=== PATIENT | female | born 1975 | race Caucasian/White ===

== ENCOUNTER 2018-06-01 11:05 | Emergency (ER) | payer SELFPAY ==
[2018-06-01 11:18] VITALS: BP 147/80
[2018-06-01] MEDS ORDERED: KETOROLAC TROMETHAMINE 60 MG/2 ML SDV IM ONE (11:25)
--- NOTE | 2018-06-01 11:30 | ER Document Report ---
HPI - HPI Time Seen by Provider: 06/01/18 11:19 Pain Level: 4 Notes: Patient is a 43-year-old female with a history of fibromyalgia and on gabapentin who presents the emergency department complaining of left mid back and left lateral neck pain/stiffness that began over the last couple days. Patient states that she has had symptoms like this before. Patient states that moving and twisting do make her pain is worse. Pain will radiate to her shoulder. Patient states that she recently moved to the area and otherwise does not have insurance at this time. She is eating and drinking without difficulty. She is urinating normally and having normal bowel movements. No history of spinal abscess, diabetes, or IV drug abuse. Patient does report having some bulging disks in her mid back/neck. Patient is currently on antibiotics for dental infection which has been improving. Denies any headache, fever, head injury, URI, sore throat, chest pain, palpitations, syncope, cough, shortness of breath, wheeze, dyspnea, abdominal pain, nausea/vomiting/diarrhea, urinary retention, dysuria, hematuria, loss of control of bowel or bladder, numbness/tingling, saddle anesthesia, muscle paralysis/weakness, or rash. - ROS Systems Reviewed and Negative: Yes All other systems reviewed and negative - REPRODUCTIVE Reproductive: DENIES: : Past Medical History - Social History Smoking Status: Current Every Day Smoker Family History: Reviewed & Not Pertinent Patient has suicidal ideation: No Patient has homicidal ideation: No Renal/ Medical History: Denies: Hx Peritoneal Dialysis Psychiatric Medical History: Reports: Hx Depression Past Surgical History: Reports: Hx Appendectomy, Hx Orthopedic Surgery, Hx Tonsillectomy Vertical Provider Document - CONSTITUTIONAL Agree With Documented VS: Yes Notes: PHYSICAL EXAMINATION: GENERAL: Well-appearing, well-nourished and in no acute distress. Neck: Full range of motion. Strength 5+/5. Spurling negative. No midline tenderness. LUNGS: Breath sounds clear to auscultation bilaterally and equal. No wheezes rales or rhonchi. HEART: Regular rate and rhythm without murmurs, rubs, gallops. ABDOMEN: Soft, nontender, nondistended abdomen. No guarding, no rebound. No masses appreciated. Normal bowel sounds present. No CVA tenderness bilaterally. No pulsatile mass Musculoskeletal: Extremities b/l: FROM to passive/active. Strength 5+/5. No deficits noted. No bony tenderness of extremities. N/V intact distal. Back: FROM to passive/active. Strength 5+/5. No vertebral point tenderness, stepoffs, or deformities. No other bony tenderness, erythema, swelling, or ecchymosis. SLR negative b/l. + Reproducible tenderness to the left trapezius muscle distribution from the left lateral neck to the mid back and scapular area. Mild spasming. No SI jt tenderness. No foot drop Extremities: No cyanosis, clubbing, or edema b/l. Peripheral pulses 2+. Capillary refill less than 2 seconds. NEUROLOGICAL: Normal speech, normal gait. Normal sensory, motor exams. Reflexes 2+ b/l. PSYCH: Normal mood, normal affect. SKIN: Warm, Dry, normal turgor, no rashes or lesions noted. - INFECTION CONTROL TRAVEL OUTSIDE OF THE [place] IN LAST 30 DAYS: No Course - Re-evaluation Re-evalutation: 06/01/18 11:28 Patient is an afebrile, well-hydrated, 43-year-old male who presents to the ED with left trapezius muscle spasming and left mid neck/mid back pain, suspect benign. Vitals are acceptable. PE is otherwise unremarkable for any focal neurological deficits. Patient was given Toradol. She has no significant tachycardia, tachypnea, or hypoxia. She is nontoxic-appearing and is tolerating p.o. without difficulties. There are no signs of infection. No other red flag symptoms noted. No other labs or imaging warranted at this time based on H&P. Low suspicion for any meningitis, fracture, expanding/ruptured AAA, cauda equina syndrome, epidural mass lesion/abscess, herniated disc causing severe spinal stenosis, or other systemic infection at this time. Patient is aware that this condition can change from initial presentation and that she needs monitor symptoms closely for any acute changes. I will send her home with a prescription for flexeril and naproxen. Conservative measures otherwise for symptoms. Recheck with your PCM in 3-5 days. Consider consult with orthopedic/physical therapy. Return to the ED with any worsening/concerning symptoms otherwise as reviewed discharge. Patient is in agreement. - Vital Signs Vital signs: Temp Pulse Resp BP Pulse Ox 98.0 F 93 16 147/80 H 95 06/01/18 11:17 06/01/18 11:17 06/01/18 11:17 06/01/18 11:17 06/01/18 11:17 Discharge - Discharge Clinical Impression: Neck pain on left side Left-sided thoracic back pain Qualifiers: Chronicity: acute Qualified Code(s): M54.6 - Pain in thoracic spine Strain of left trapezius muscle Qualifiers: Encounter type: initial encounter Qualified Code(s): S46.812A - Strain of other muscles, fascia and tendons at shoulder and upper arm level, left arm, initial encounter Condition: Stable Disposition: HOME, SELF-CARE Instructions: Muscle Relaxers ([facility]) Additional Instructions: Rest, Ice Tylenol/ibuprofen as needed Light stretches daily Strength exercises as able Moist heat and massage may help F/u with your PCP in 3-5 days for a recheck Consider consult(s) with Orthopedics/physical therapy for ongoing/worsening symptoms Return to the ED with any worsening symptoms and/or development of fever, headache, chest pain, palpitations, syncope, shortness of breath, trouble breathing, abdominal pain, n/v/d, blood in stool/urine, loss of control of bowel/bladder, urinary retention, muscle weakness/paralysis, saddle anesthesia, numbness/tingling, or other worsening symptoms that are concerning to you. Prescriptions: Cyclobenzaprine HCl [Flexeril 10 mg Tablet] 10 mg PO TIDP PRN #10 tab PRN Reason: Naproxen 500 mg PO BID #10 tablet Forms: Elevated Blood Pressure, Smoking Cessation Education Referrals: [facility] [Provider Group] - Follow up as needed [facility] [Provider Group] - Follow up as needed
--- NOTE | 2018-06-01 11:41 | EKG REPORT ---
SEVERITY:- NORMAL ECG - SINUS RHYTHM : Confirmed by: Jose Hilton MD 01-Jun-2018 11:40:42
== END 2018-06-01 11:39 | disposition home or self-care (01) ==
LOC: ER 11:05
DX: S29.012A Strain of muscle and tendon of back wall of thorax, initial encounter (principal); X58.XXXA Exposure to other specified factors, initial encounter; M79.7 Fibromyalgia; Z79.899 Other long term (current) drug therapy; M62.830 Muscle spasm of back; M54.6 Pain in thoracic spine; M54.2 Cervicalgia; K04.7 Periapical abscess without sinus; F17.200 Nicotine dependence, unspecified, uncomplicated
CPT/HCPCS: 93005; 99283; 96372; 93010; J1885

== ENCOUNTER → 2018-11-22 | Outpatient (CLI) | payer OTHER ==
--- NOTE | 2018-11-22 11:24 | RADIOLOGY REPORT (SQ) ---
EXAM DESCRIPTION: CT ABD/PELVIS WITH IV ORAL COMPLETED DATE/TIME: 11/22/2018 9:23 am REASON FOR STUDY: (R00.2)PALPITATIONS; (R10.9)UNSPECIFIED ABDOMINAL PAIN R10.9 UNSPECIFIED ABDOMINA L PAIN R00.2 PALPITATIONS COMPARISON: None. TECHNIQUE: CT scan of the abdomen and pelvis performed using helical scanning technique with dynamic intravenous contrast injection. No oral contrast. Images reviewed with lung, soft tissue, and bone windows. Reconstructed coronal and sagittal MPR images reviewed. Delayed images for evaluation of the urinary system also acquired. All images stored on PACS. All CT scanners at this facility use dose modulation, iterative reconstruction, and/or weight based d osing when appropriate to reduce radiation dose to as low as reasonably achievable (ALARA). [facility]: Dose Right [facility]: CareDose [facility]: Dose Right [facility]: Teradose 4D [facility]: Little Borrowed Dress CONTRAST TYPE AND DOSE: contrast/concentration: Isovue 350.00 mg/ml; Total Contrast Delivered: 100.0 ml; Total Saline Delivered: 72.0 ml RENAL FUNCTION: None required. The patient is less than 50 years old. RADIATION DOSE: CT Rad equipment meets quality standard of care and radiation dose reduction techniq ues were employed. CTDIvol: 15.5 - 16.4 mGy. DLP: 1756 mGy-cm.. LIMITATIONS: None. FINDINGS: LOWER CHEST: No basilar consolidation, pleural effusion or pneumothorax. No cardiomegaly or pericardial effusion. LIVER: The liver morphology is non cirrhotic. The portal and hepatic veins are patent. There is no hepatic mass or dilatation of the intrahepatic biliary ducts. SPLEEN: The spleen is normal in size. PANCREAS: There is no abnormality of the pancreas. GALLBLADDER: No abnormality that is apparent on CT. ADRENAL GLANDS: No abnormality. RIGHT KIDNEY AND URETER: No solid masses. No calcifications. No hydronephrosis or hydroureter. LEFT KIDNEY AND URETER: No solid masses. No calcifications. No hydronephrosis or hydroureter. AORTA AND VESSELS: No aneurysm or dissection. RETROPERITONEUM: No enlarged retroperitoneal adenopathy or mass. BOWEL AND PERITONEAL CAVITY: Circumferential moral thickening involving the descending and sigmoid co rajat. There is no associated obstruction, pericolonic/ perienteric inflammation, or extraluminal azalea ection. There is no enlarged mesenteric adenopathy, mass, or free fluid/gas. APPENDIX: Normal. PELVIS: There is an IUD in place. There is no adnexal mass. Th urinary bladder is decompressed. Th ere is no pelvic adenopathy, free fluid or mass. ABDOMINAL WALL: Fat containing umbilical hernia. BONES: No acute findings. OTHER: No other finding. IMPRESSION: Circumferential mural thickening involving the descending and sigmoid colon. Correlate with clinical findings to exclude an infectious or inflammatory colitis. TECHNICAL DOCUMENTATION: JOB ID: [id number] Quality ID # [id number]: Final reports with documentation of one or more dose reduction techniques (e.g., Au tomated exposure control, adjustment of the mA and/or kV according to patient size, use of iterative reconstruction technique) 2010 [employer]- All Rights Reserved Reading location - IP/workstation name: [email or web address]
== END ==
LOC: RAD 09:01
PROVIDERS: ATTEND Nurse Practitioner Primary Care
DX: K42.9 Umbilical hernia without obstruction or gangrene (principal); R00.2 Palpitations
CPT/HCPCS: 74177

== ENCOUNTER 2018-12-21 16:44 | Emergency (ER) | payer MEDICAID, OTHER ==
[2018-12-21] MEDS ORDERED: PENICILLIN V POTASSIUM 500 MG TABLET PO ONE (19:34)
[2018-12-21] MEDS ORDERED: ALBUTEROL SULFATE HFA (90 MCG/PUFF) 8 GM MDI (1 MDI/ER DISP) IH ONE (19:34)
--- NOTE | 2018-12-21 19:41 | ER Document Report ---
HPI - HPI Patient complains to provider of: tooth pain Time Seen by Provider: 12/21/18 18:52 Pain Level: 2 Context: 43-year-old female presents the emergency department with multiple complaints. Her initial complaint is post extraction tooth pain of the #19 tooth. It was removed 2 weeks ago at [facility] and she is concerned that she has an infection. She says she has a foul taste in her mouth and has significant pain from her maxillary bone down to her jaw. He denies any fevers or chills, denies dysphagia, denies trismus, says that there is some very mild swelling of the mouth. Also, she is complained of a cough for the past week. Says she has had some chest tightness and wheezing associated with it. Also, she is complaining of abdominal pain that has been present since September. She was seen at the [facility] and a CT abdomen/pelvis was done which showed some mural wall thickening of the sigmoid colon. The recommendation was that she go on a liquid diet to see if her symptoms improved. She said they did transiently improved but she still has some lingering pain. It was recommended that she follow-up with GI but she does not have insurance. She denies any fevers or chills, denies headache, denies neck stiffness, denies chest pain, denies nausea or vomiting, does complain of loose stools, denies any urinary symptoms. - GASTROINTESTINAL Gastrointestinal: REPORTS: Abdominal Pain - REPRODUCTIVE Reproductive: DENIES: : Past Medical History - Social History Smoking Status: Current Every Day Smoker Frequency of alcohol use: Social Drug Abuse: Marijuana Family History: Reviewed & Not Pertinent Patient has suicidal ideation: No Patient has homicidal ideation: No Renal/ Medical History: Denies: Hx Peritoneal Dialysis Psychiatric Medical History: Reports: Hx Depression Past Surgical History: Reports: Hx Appendectomy, Hx Orthopedic Surgery, Hx Tonsillectomy Vertical Provider Document - CONSTITUTIONAL Notes: PHYSICAL EXAMINATION: Reviewed vital signs and charting by RN GENERAL: Alert, interacts well. No acute distress. HEAD: Normocephalic, atraumatic. EYES: Pupils equal and round. Extraocular movements intact. ENT: Oral mucosa moist, tongue midline. NECK: Full range of motion. Trachea midline. LUNGS: Clear to auscultation bilaterally, end expiratory wheezes, no Rales or rhonchi. No respiratory distress. HEART: Regular rate and rhythm. No murmur ABDOMEN: soft, mild tenderness in the left lower quadrant. No distention. Bowel sounds present EXTREMITIES: Moves all 4 extremities spontaneously. No edema, No cyanosis. PSYCH: Normal affect, normal mood. SKIN: Warm, dry, normal turgor. No rashes or lesions noted. - INFECTION CONTROL TRAVEL OUTSIDE OF THE [place] IN LAST 30 DAYS: No Course - Re-evaluation Re-evalutation: 12/21/18 19:45 Patient presents with several chief complaints. There did appear to be a small amount of purulent discharge from the #19 socket so I obtained a sample and will send for culture. I will place her on penicillin VK 500 mg p.o. for 1 week. No fevers or chills. No trismus. No need for advanced imaging at this point. Also, patient presents with subacute abdominal pain for which she had a CT abdomen outpatient. The results showed mural wall thickening of the sigmoid colon and the [facility] recommended that she get GI follow-up for which she never did. At this time patient is not toxic appearing and her abdomen is soft and I recommended that she get GI follow-up and I provided her with Dr. Dean's information. I do not feel we need to perform any additional imaging or get additional lab work at this time. She also has some end expiratory wheezing on physical exam and I am going to give her an albuterol inhaler with spacer with education. She did request ibuprofen 800 mg prescription after I explained to her that it would be more cost effective for her to purchase a bottle at [facility] as the efficacy is the same. I also explained to her that I recommend 600 mg every 6 hours versus 800 mg every 8 hours but the patient stated she has been on pain medications for years due to her "fibromyalgia" and said "the 800 mg Motrin works best for me". I conceded but educated her that she should only take 800 mg every 8 hours. Patient was given strict return precautions and education, patient agrees with the plan and is satisfied, stable for discharge. - Vital Signs Vital signs: Temp Pulse Resp BP Pulse Ox 97.6 F 92 18 129/72 H 95 12/21/18 16:56 12/21/18 16:56 12/21/18 16:56 12/21/18 16:56 12/21/18 16:56 Discharge - Discharge Clinical Impression: Dental infection, Cough, Wheezing Abdominal pain Qualifiers: Abdominal location: left lower quadrant Qualified Code(s): R10.32 - Left lower quadrant pain Condition: Good Disposition: HOME, SELF-CARE Additional Instructions: You were seen in the emergency department for dental pain postextraction, cough and wheezing, and lower abdominal pain. There was evidence of some mild purulent discharge coming from the tooth socket from the extraction. You have received a dose of penicillin here in the emergency department I have given you a one-week prescription and you should take 1 tablet in the morning and 1 tablet in the evening. Also, I have given you a prescription for ibuprofen 800 mg that he should take every 8 hours per your request. You did have some end expiratory wheezing so I am giving you a spacer with an inhaler. If you feel like you are short of breath or your chest is tight you can take 2 puffs of the inhaler as needed every 4 hours or so. I have given you information for GI, Dr. Daly, and can attempt to follow-up with him with respect to your CT scan from late October. Your vital signs were within normal limits and there is no evidence of infectious symptoms that would concern me for an acute process here in the emergency department today requiring admission to the hospital. But, it is important that you do get definitive follow-up with gastroenterology. Please return to the emergency department if you pass out, you have severe acute shortness of breath, severe chest pain, intractable nausea or vomiting, profuse diarrhea, or you have any other concerning symptoms. Prescriptions: Ibuprofen [Motrin 800 mg Tablet] 800 mg PO Q8H PRN #60 tab PRN Reason: Penicillin V Potassium [Penicillin Vk 500 mg Tablet] 500 mg PO BID 7 Days #14 tablet Referrals: LINN DALY MD [ACTIVE STAFF] - Follow up as needed
[2018-12-21 20:04] VITALS: BP 135/96
== END 2018-12-21 20:02 | disposition home or self-care (01) ==
LOC: ER 16:44
DX: K04.7 Periapical abscess without sinus (principal); R05 Cough; R10.32 Left lower quadrant pain; R06.2 Wheezing; R07.89 Other chest pain; F17.200 Nicotine dependence, unspecified, uncomplicated; F12.10 Cannabis abuse, uncomplicated; M79.7 Fibromyalgia; Z79.899 Other long term (current) drug therapy; Z90.49 Acquired absence of other specified parts of digestive tract
CPT/HCPCS: 99282; J3490

== ENCOUNTER 2019-05-15 15:55 | Inpatient (IN) | payer BC, OTHER ==
[2019-05-15] MEDS ORDERED: NORMAL SALINE IV ONE (16:12)
[2019-05-15 16:39] LABS: VENOUS BLOOD BASE EXCESS 1.7 mmol/L; VENOUS BLOOD HCO3 23.7 mmol/L (20-32); VENOUS BLOOD PCO2 30.7 mmHg (35-63); VENOUS BLOOD PH 7.51 (7.30-7.42)
[2019-05-15 16:42] LABS: HEMATOCRIT 36.8 % (36.0-47.0); INTERNATIONAL RATION (INR) 1.13; MEAN CORPUSCULAR HEMOGLOBIN 30.7 pg (27.0-33.4); MEAN CORPUSCULAR HGB CONC 35.4 g/dL (32.0-36.0); MEAN CORPUSCULAR VOLUME 87 fl (80-97); PLATELET COUNT 152 10^3/uL (150-450); PROTHROMBIN TIME 14.5 SEC (11.4-15.4); RED BLOOD COUNT 4.24 10^6/uL (3.72-5.28); RED CELL DISTRIBUTION WIDTH 13.5 % (11.5-14.0); WHITE BLOOD COUNT 7.6 10^3/uL (4.0-10.5)
--- NOTE | 2019-05-15 16:48 | RADIOLOGY REPORT (SQ) ---
EXAM DESCRIPTION: CHEST SINGLE VIEW COMPLETED DATE/TIME: 05/15/2019 4:38 pm REASON FOR STUDY: Sepsis alert cough COMPARISON: None. EXAM PARAMETERS: NUMBER OF VIEWS: One view. TECHNIQUE: Single frontal radiographic view of the chest acquired. RADIATION DOSE: NA LIMITATIONS: None. FINDINGS: LUNGS AND PLEURA: No opacities, masses or pneumothorax. No pleural effusion. MEDIASTINUM AND HILAR STRUCTURES: No masses. Contour normal. HEART AND VASCULAR STRUCTURES: Heart normal in size. Normal vasculature. BONES: No acute findings. HARDWARE: None in the chest. OTHER: No other significant finding. IMPRESSION: NO ACUTE RADIOGRAPHIC FINDING IN THE CHEST. TECHNICAL DOCUMENTATION: JOB ID: [id number] 2010 [employer]- All Rights Reserved Reading location - IP/workstation name: [email or web address]
[2019-05-15 16:56] LABS: ALBUMIN 3.3 g/dL (3.5-5.0); ALKALINE PHOSPHATASE 117 U/L (38-126); ANION GAP 10 (5-19); ASPARTATE AMINO TRANSFERASE 76 U/L (14-36); BILIRUBIN,DIRECT 0.4 mg/dL (0.0-0.4); BILIRUBIN,TOTAL 1.9 mg/dL (0.2-1.3); BLOOD UREA NITROGEN 20 mg/dL (7-20); CALCIUM 8.7 mg/dL (8.4-10.2); CARBON DIOXIDE 26 mmol/L (22-30); CHLORIDE 100 mmol/L (98-107); GLUCOSE 104 mg/dL (75-110); POTASSIUM 3.1 mmol/L (3.6-5.0); TOTAL PROTEIN 6.4 g/dL (6.3-8.2)
[2019-05-15 17:16] LABS: ABSOLUTE LYMPHOCYTES# (MANUAL) 0.6 10^3/uL (0.5-4.7); BASOPHILS % (MANUAL) 0 % (0-2); EOSINOPHILS % (MANUAL) 0 % (0-6); LYMPHOCYTES % (MANUAL) 6 % (13-45); METAMYELOCYTES % (MANUAL) 2 % (0-1); MONOCYTES % (MANUAL) 0 % (3-13); SEGMENTED NEUTROPHILS % (MAN) 66 % (42-78); TOTAL CELLS COUNTED 100
[2019-05-15 17:23] LABS: PLATELET COMMENT ADEQUATE; PLATELET LARGE PRESENT; POLYCHROMASIA SLIGHT
[2019-05-15 17:24] LABS: BAND NEUTROPHILS % (MANUAL) 24 % (3-5); TOXIC VACUOLATION PRESENT
[2019-05-15 17:41] LABS: AMORPHOUS SEDIMENT,URINE TRACE /HPF; APPEARANCE,URINE CLOUDY; BILIRUBIN,URINE NEGATIVE (NEGATIVE); COLOR,URINE AMBER; GLUCOSE, URINE NEGATIVE (NEGATIVE); KETONES,URINE NEGATIVE (NEGATIVE); PROTEIN,URINE 30 mg/dL (NEGATIVE); URINE SPECIFIC GRAVITY 1.013
[2019-05-15] MEDS ORDERED: CEFTRIAXONE 1 GM/D5W RTU 1 GM/50 ML RTUPB IV ONE (17:46)
[2019-05-15 17:49] LABS: A TYPE INFLUENZA AG NEGATIVE (NEGATIVE); B INFLUENZA AG NEGATIVE (NEGATIVE)
[2019-05-15] MEDS ORDERED: ACETAMINOPHEN 325 MG TABLET PO ONE (17:53)
--- NOTE | 2019-05-15 17:55 | ER Document Report ---
Entered by RENETTA CHIN SCRIBE 05/15/19 1708 Acting as scribe for:EVER SMART, ED General - General Information source: Patient TRAVEL OUTSIDE OF THE [place] IN LAST 30 DAYS: No - Related Data Home Medications: Cymbalta. Gabapentin. Ibuprophen <EVER SMART - Last Filed: 05/15/19 18:03> <ANGELCIA RUSSELL - Last Filed: 05/16/19 04:40> - General Chief Complaint: Fever Stated Complaint: SHORTNESS OF BREATH/CHILLS/HEADACHE Time Seen by Provider: 05/15/19 17:03 Primary Care Provider: ALINA HUITRON FNP-C [Primary Care Provider] - Follow up as needed Notes: This 44-year-old female with hypertension and fibromyalgia presents to the emergency department complaining of a fever that began three days ago. Patient reports shortness of breath, chills and headache. Patient states that she has had increased fibromyalgia symptoms over the past week. Patient explains that she has also had intermittent left lower quadrant pain since October (6 months prior to arrival). Patient is unsure if she has had a fever today. Patient reports that she thinks she has had an upper respiratory infection for the past 2 weeks with an associated dry cough. (EVER SMART) - Related Data Allergies/Adverse Reactions: No Known Allergies Allergy (Verified 06/01/18 11:06) Past Medical History - General Information source: Patient - Social History Smoking Status: Current Every Day Smoker Cigarette use (# per day): Yes Chew tobacco use (# tins/day): No Frequency of alcohol use: Occasional Drug Abuse: None Family History: Reviewed & Not Pertinent Patient has suicidal ideation: No Patient has homicidal ideation: No Psychiatric Medical History: Reports: Hx Depression Past Surgical History: Reports: Hx Appendectomy, Hx Orthopedic Surgery, Hx Tonsillectomy <EVER SMART - Last Filed: 05/15/19 18:03> Review of Systems - Review of Systems Constitutional: See HPI, Chills, Fever EENT: No symptoms reported Cardiovascular: No symptoms reported Respiratory: See HPI, Short of breath Gastrointestinal: See HPI, Abdominal pain Genitourinary: No symptoms reported Female Genitourinary: No symptoms reported Musculoskeletal: See HPI, Muscle pain Skin: No symptoms reported Hematologic/Lymphatic: No symptoms reported Neurological/Psychological: No symptoms reported -: Yes All other systems reviewed and negative <EVER SMART P - Last Filed: 05/15/19 18:03> Physical Exam <EVER SMART - Last Filed: 05/15/19 18:03> - Vital signs Vitals: Temp Pulse Resp BP 99.7 F 132 H 22 H 104/56 L 05/15/19 16:03 05/15/19 16:03 05/15/19 16:03 05/15/19 16:03 - Notes Notes: Physical Exam: General: Alert, appears well and stated age. HEENT: Normocephalic. Atraumatic. PERRL. Extraocular movements intact. Oropharynx clear. Mildly dry mucous membranes. Neck: Supple. Non-tender. Respiratory: No respiratory distress. Coarse rhonchi at the basis bilaterally. Cardiovascular: Regular rate and rhythm. Abdominal: Left lower quadrant and suprapubic region has mild tenderness to palpation. No distension. Normal Bowel Sounds. Obese. Back: No gross abnormalities. Reddened skin. Extremities: Moves all four extremities. Upper extremities: Normal inspection. Normal ROM. Lower extremities: Normal inspection. No edema. Normal ROM. Neurological: Normal cognition. AAOx4. Normal speech. Psychological: Normal affect. Normal Mood. Skin: Hot. Dry. Reddened skin on back, otherwise normal color. (EVER SMART) Course - Laboratory Result Diagrams: 05/15/19 16:15 05/15/19 16:15 <EVER SMART - Last Filed: 05/15/19 18:03> - Laboratory Result Diagrams: 05/15/19 16:15 05/16/19 01:30 - Diagnostic Test Radiology reviewed: Image reviewed, Reports reviewed <ANGELICA RUSSELL H - Last Filed: 05/16/19 04:40> - Re-evaluation Re-evalutation: 05/16/19 04:38 The patient has pyelonephritis and sepsis. The patient was in the ER for a prolonged period of time due to persistent hypotension despite fluids. The ICU midlevel was consulted since the patient required pressors for a period of time in the ER. The patient however was able to come off pressors and she maintained her MAPS above 70. The patient had already been given IV antibiotics before I took over. I contacted the hospitalist and the patient was admitted to IMCU. ([place]) - Vital Signs Vital signs: Temp Pulse Resp BP Pulse Ox 98.3 F 74 12 94/56 L 99 05/15/19 19:56 05/15/19 23:24 05/16/19 04:30 05/16/19 04:30 05/16/19 04:30 - Laboratory Laboratory results interpreted by me: 05/15/19 05/15/19 05/15/19 16:15 16:15 16:15 Band Neutrophils % 24 H Lymphocytes % (Manual) 6 L Monocytes % (Manual) 0 L Metamyelocytes % 2 H Abs Monocytes (Manual) 0.0 L VBG pH 7.51 H VBG pCO2 30.7 L Sodium 135.9 L Potassium 3.1 L Chloride Carbon Dioxide Glucose POC Glucose Lactic Acid Calcium Total Bilirubin 1.9 H AST 76 H ALT 37 H Albumin 3.3 L Urine Protein Urine Blood Urine Nitrite (Reflex) Urine Urobilinogen Leukocyte Esterase Rfl 05/15/19 05/15/19 05/15/19 16:15 16:20 17:22 Band Neutrophils % Lymphocytes % (Manual) Monocytes % (Manual) Metamyelocytes % Abs Monocytes (Manual) VBG pH VBG pCO2 Sodium Potassium Chloride Carbon Dioxide Glucose POC Glucose 123 H Lactic Acid 2.2 H Calcium Total Bilirubin AST ALT Albumin Urine Protein 30 H Urine Blood MODERATE H Urine Nitrite (Reflex) POSITIVE H Urine Urobilinogen 2.0 H Leukocyte Esterase Rfl MODERATE H 05/16/19 01:30 Band Neutrophils % Lymphocytes % (Manual) Monocytes % (Manual) Metamyelocytes % Abs Monocytes (Manual) VBG pH VBG pCO2 Sodium Potassium 3.5 L Chloride 109 H Carbon Dioxide 20 L Glucose 201 H POC Glucose Lactic Acid Calcium 7.2 L Total Bilirubin AST ALT Albumin Urine Protein Urine Blood Urine Nitrite (Reflex) Urine Urobilinogen Leukocyte Esterase Rfl Discharge <EVER SMART P - Last Filed: 05/15/19 18:03> - Discharge Admitting Provider: Danis (Hospitalist) Unit Admitted: IMCU <[facility] - Last Filed: 05/16/19 04:40> - Discharge Clinical Impression: UTI (urinary tract infection) Qualifiers: Urinary tract infection type: site unspecified Hematuria presence: without hematuria Qualified Code(s): N39.0 - Urinary tract infection, site not specified Sepsis Qualifiers: Sepsis type: sepsis due to unspecified organism Sepsis acute organ dysfunction status: unspecified Qualified Code(s): A41.9 - Sepsis, unspecified organism Condition: Fair Disposition: ADMITTED INPATIENT Referrals: ALINA HUITRON FNP-C [Primary Care Provider] - Follow up as needed I personally performed the services described in the documentation, reviewed and edited the documentation which was dictated to the scribe in my presence, and it accurately records my words and actions.
[2019-05-15] MEDS ORDERED: POTASSIUM CHLORIDE 20 MEQ PACKET PO ONE (18:23)
[2019-05-15] MEDS ORDERED: NORMAL SALINE 1000 ML 1,000 ML IV ONE (19:25)
--- NOTE | 2019-05-15 20:35 | RADIOLOGY REPORT (SQ) ---
EXAM DESCRIPTION: CLINICAL HISTORY: 44 years Female . Left lower quadrant pain. Rule out pyelonephritis. COMPARISON: None TECHNIQUE: Axial images with 100 mL of Omnipaque 350. Sagittal coronal reconstruction. This exam was performed according to our departmental dose-optimization program, which includes automated exposure control, adjustment of the mA and/or kV according to patient size and/or use of iterative reconstruction technique.. FINDINGS: Lung bases are unremarkable. Small hiatal hernia. Suspected mild fatty liver. Spleen, pancreas, adrenal glands, aorta and Degree is unremarkable. Evaluation of the kidneys demonstrates bilateral hypodensities that are not clearly seen on the early images. More clearly seen on delayed images and suspicious for pyelonephritis. There is a more hypodense lesion in the left kidney mid lower pole laterally. Series 5 image 41 which may represent an incidental 10 mm renal cyst versus abscess.. There is no hydronephrosis. No suspicious kidney stones. A moderate distention of the stomach. Mild increased fluid in large bowel loops. No evidence for bowel obstruction. Peritoneal cavity is unremarkable. CT of the pelvis demonstrates IUD in good position within an anteflexed uterus. Urinary bladder unremarkable. Adnexa are not enlarged. Bowel loops are unremarkable. No adenopathy or free fluid. IMPRESSION: 1. Several small bilateral renal hypodensities suspicious for pyelonephritis. A single lesion in the left kidney is more cystic and may represent a simple cyst less likely a small abscess. 2. Mild fatty liver. Nonspecific bowel pattern with increased fluid in stomach and large bowel loops. Small hiatal hernia. IUD in good position.
[2019-05-15] MEDS ORDERED: IBUPROFEN 800 MG TABLET PO ONE (20:46)
[2019-05-15] MEDS ORDERED: VANCOMYCIN HCL INJ 1000 MG VIAL IV ONE (20:47)
[2019-05-15] MEDS: NORMAL SALINE 1000 ML 1,000 ML IV PRN ×2 (21:21→21:23)
--- NOTE | 2019-05-15 21:46 | EKG REPORT ---
SEVERITY:- OTHERWISE NORMAL ECG - SINUS TACHYCARDIA : Confirmed by: Carolina Little MD 15-May-2019 21:45:31
[2019-05-15] MEDS ORDERED: DEXTROSE 5%-WATER 250 ML with NOREPINEPHRINE BITARTRATE 4 MG IV PRN ×2 (23:29)
[2019-05-15] MEDS ORDERED: NOREPINEPHRINE BITARTRATE INJ/PF 4 MG/4 ML SDV IV ONE (23:37)
[2019-05-16] MEDS ORDERED: RINGERS SOLUTION,LACTATED 500 ML IV ONE (01:04)
[2019-05-16 02:12] LABS: ANION GAP 10 (5-19); CALCIUM 7.2 mg/dL (8.4-10.2); CARBON DIOXIDE 20 mmol/L (22-30); CHLORIDE 109 mmol/L (98-107); GLUCOSE 201 mg/dL (75-110); PHOSPHORUS 2.8 mg/dL (2.5-4.5); POTASSIUM 3.5 mmol/L (3.6-5.0)
[2019-05-16 02:17] LABS: BLOOD UREA NITROGEN 15 mg/dL (7-20)
[2019-05-16] MEDS ORDERED: VANCOMYCIN HCL 0 MG in DEXTROSE 5%-WATER 250 ML IV NR (04:45)
[2019-05-16] MEDS ORDERED: MAG HYDROX/AL HYDROX/SIMETH SUSP 30 ML UDCUP PO PRN (04:46)
[2019-05-16] MEDS ORDERED: IPRATROPIUM/ALBUTEROL 0.5-2.5 MG/3 ML AMPUL NEB PRN (04:46)
--- NOTE | 2019-05-16 04:58 | PDOC H&P ---
History of Present Illness Admission Date/PCP: GUILLERMO KABA Patient complains of: Fever History of Present Illness: DENI DELGADO is a 44 year old female with a past medical history of morbid obesity, fibromyalgia, chronic pain, tobacco dependence and cannabis use. She presents with 3 days of intermittent fever and malodorous urine prompting evaluation in the emergency room where she is found to have hypotension, pyuria and bilateral pyelonephritis by CT without hydronephrosis, nephrolithiasis or abscess. She receives 6-1/2 L of saline and approximately 30 minutes of Levophed which is weaned off. She is lying flat and comfortable without tachypnea or tachycardia. She is referred to the hospitalist for admission. She otherwise denies recent UTI or antibiotic use. Past Medical History Cardiac Medical History: Reports: None Pulmonary Medical History: Reports: None EENT Medical History: Reports: None Neurological Medical History: Reports: None Endocrine Medical History: Reports: None Renal/ Medical History: Reports: None Malignancy Medical History: Reports: None Psychiatric Medical History: Reports: Depression, Substance Abuse, Tobacco Dependency Past Surgical History Past Surgical History: Reports: Appendectomy, Orthopedic Surgery, Tonsillectomy Social History Information Source: Patient, [facility] Records Smoking Status: Current Every Day Smoker Electronic Cigarette use?: No Frequency of Alcohol Use: Occasional Drugs: Marijuana - Advance Directive Resuscitation Status: Full Code Family History Parental Family History Reviewed: Yes Children Family History Reviewed: Yes Sibling(s) Family History Reviewed.: Yes Medication/Allergy Home Medications: Ibuprofen [Motrin 800 mg Tablet] 800 mg PO Q8H PRN #60 tab 12/21/18 Duloxetine HCl [Cymbalta] 60 mg PO QHS 05/16/19 Gabapentin 800 mg PO TID 05/16/19 Naproxen 500 mg PO QHS 05/16/19 Allergies/Adverse Reactions: No Known Allergies Allergy (Verified 06/01/18 11:06) Review of Systems Constitutional: ABSENT: chills, fever(s), headache(s), weight gain, weight loss Eyes: ABSENT: visual disturbances Ears: ABSENT: hearing changes Cardiovascular: ABSENT: chest pain, dyspnea on exertion, edema, orthropnea, palpitations Respiratory: ABSENT: cough, hemoptysis Gastrointestinal: PRESENT: as per HPI, abdominal pain, bloating, constipation. ABSENT: diarrhea, hematemesis, hematochezia, nausea, vomiting Genitourinary: ABSENT: dysuria, hematuria Musculoskeletal: ABSENT: joint swelling Integumentary: ABSENT: rash, wounds Neurological: ABSENT: abnormal gait, abnormal speech, confusion, dizziness, focal weakness, syncope Psychiatric: ABSENT: anxiety, depression, homidical ideation, suicidal ideation Endocrine: ABSENT: cold intolerance, heat intolerance, polydipsia, polyuria Hematologic/Lymphatic: ABSENT: easy bleeding, easy bruising Physical Exam Vital Signs: Temp Pulse Resp BP Pulse Ox 98.3 F 74 12 94/56 L 99 05/15/19 19:56 05/15/19 23:24 05/16/19 04:30 05/16/19 04:37 05/16/19 04:30 Intake & Output 05/14/19 05/15/19 05/16/19 11:59 11:59 11:59 Intake Total 5593 Balance 5593 Weight 98.6 kg General appearance: PRESENT: cooperative, mild distress, morbidly obese, well- developed, well-nourished Head exam: PRESENT: atraumatic, normocephalic Eye exam: PRESENT: conjunctiva pink, EOMI, PERRLA. ABSENT: scleral icterus Ear exam: PRESENT: normal external ear exam Mouth exam: PRESENT: moist, tongue midline Neck exam: ABSENT: carotid bruit, JVD, lymphadenopathy, thyromegaly Respiratory exam: PRESENT: clear to auscultation mitul. ABSENT: rales, rhonchi, wheezes Cardiovascular exam: PRESENT: RRR. ABSENT: diastolic murmur, rubs, systolic murmur Pulses: PRESENT: normal dorsalis pedis pul Vascular exam: PRESENT: normal capillary refill GI/Abdominal exam: PRESENT: normal bowel sounds, soft, tenderness - Left upper quadrant pain. ABSENT: distended, guarding, mass, organolmegaly, rebound Rectal exam: PRESENT: deferred Extremities exam: PRESENT: full ROM. ABSENT: calf tenderness, clubbing, pedal edema Neurological exam: PRESENT: alert, awake, oriented to person, oriented to place, oriented to time, oriented to situation, CN II-XII grossly intact. ABSENT: mo tor sensory deficit Psychiatric exam: PRESENT: appropriate affect, normal mood. ABSENT: homicidal ideation, suicidal ideation Results Laboratory Results: 05/15/19 16:15 05/16/19 01:30 05/15/19 05/15/19 05/15/19 16:15 16:15 16:15 WBC 7.6 RBC 4.24 Hgb 13.0 Hct 36.8 MCV 87 MCH 30.7 MCHC 35.4 RDW 13.5 Plt Count 152 Seg Neutrophils % Not Reportable VBG pH 7.51 H VBG pCO2 30.7 L VBG HCO3 23.7 VBG Base Excess 1.7 Sodium 135.9 L Potassium 3.1 L Chloride 100 Carbon Dioxide 26 Anion Gap 10 BUN 20 Creatinine 0.96 Est GFR ( Amer) > 60 Glucose 104 Lactic Acid Calcium 8.7 Phosphorus Magnesium Total Bilirubin 1.9 H AST 76 H Alkaline Phosphatase 117 Total Protein 6.4 Albumin 3.3 L Urine Color Urine Appearance Urine pH Ur Specific Pender Urine Protein Urine Glucose (UA) Urine Ketones Urine Blood Urine RBC (Auto) 05/15/19 05/15/19 05/15/19 16:15 17:22 19:28 WBC RBC Hgb Hct MCV MCH MCHC RDW Plt Count Seg Neutrophils % VBG pH VBG pCO2 VBG HCO3 VBG Base Excess Sodium Potassium Chloride Carbon Dioxide Anion Gap BUN Creatinine Est GFR ( Amer) Glucose Lactic Acid 2.2 H 1.1 Calcium Phosphorus Magnesium Total Bilirubin AST Alkaline Phosphatase Total Protein Albumin Urine Color BLAYNE Urine Appearance CLOUDY Urine pH 5.0 Ur Specific Pender 1.013 Urine Protein 30 H Urine Glucose (UA) NEGATIVE Urine Ketones NEGATIVE Urine Blood MODERATE H Urine RBC (Auto) 11 05/15/19 05/16/19 22:56 01:30 WBC RBC Hgb Hct MCV MCH MCHC RDW Plt Count Seg Neutrophils % VBG pH VBG pCO2 VBG HCO3 VBG Base Excess Sodium 138.5 Potassium 3.5 L Chloride 109 H Carbon Dioxide 20 L Anion Gap 10 BUN 15 Creatinine 0.76 Est GFR ( Amer) > 60 Glucose 201 H Lactic Acid 1.2 Calcium 7.2 L Phosphorus 2.8 Magnesium 1.7 Total Bilirubin AST Alkaline Phosphatase Total Protein Albumin Urine Color Urine Appearance Urine pH Ur Specific Pender Urine Protein Urine Glucose (UA) Urine Ketones Urine Blood Urine RBC (Auto) Impressions: Chest X-Ray 05/15/19 16:12 IMPRESSION: NO ACUTE RADIOGRAPHIC FINDING IN THE CHEST. Abdomen/Pelvis CT 05/15/19 19:18 IMPRESSION: 1. Several small bilateral renal hypodensities suspicious for pyelonephritis. A single lesion in the left kidney is more cystic and may represent a simple cyst less likely a small abscess. 2. Mild fatty liver. Nonspecific bowel pattern with increased fluid in stomach and large bowel loops. Small hiatal hernia. IUD in good position. Assessment and Plan - Diagnosis (1) Pyelonephritis Is this a current diagnosis for this admission?: Yes Plan: No recent antibiotics, Rocephin, vancomycin initiated for severe sepsis with bandemia. Follow-up blood and urine culture (2) Sepsis Qualifiers: Sepsis type: sepsis due to unspecified organism Sepsis acute organ dysfunction status: unspecified Qualified Code(s): A41.9 - Sepsis, unspecified organism Is this a current diagnosis for this admission?: Yes Plan: Secondary to pyelonephritis. IV fluid challenge, follow-up CBC, chemistry and blood culture (3) Fibromyalgia Is this a current diagnosis for this admission?: Yes Plan: Resume outpatient Cymbalta (4) Tobacco abuse Is this a current diagnosis for this admission?: Yes Plan: Nicotine cessation counseling performed, nicotine replacement options discussed. (5) Cannabis abuse Is this a current diagnosis for this admission?: Yes Plan: Education (6) Hypotension Is this a current diagnosis for this admission?: Yes Plan: Secondary to #1, IV fluid challenge, follow-up chemistry and urine drug screen as surprisingly no tachycardia despite hypotension.
[2019-05-16] MEDS ORDERED: CEFTRIAXONE 1 GM/D5W RTU 1 GM/50 ML RTUPB IV ONE (05:13)
[2019-05-16] MEDS ORDERED: HEPARIN SOD (PORCINE) 5,000 UNIT/ML 1 ML VIAL ONE (05:14)
[2019-05-16] MEDS ORDERED: VANCOMYCIN HCL INJ 1000 MG VIAL IV PRN (05:16)
[2019-05-16] MEDS: POTASSI CL 20 MEQ/50 ML RIDER 20 MEQ/50 ML RTUPB IV SCH ×2 (05:27→08:15)
[2019-05-16] MEDS: HEPARIN SOD (PORCINE) 5,000 UNIT/ML 1 ML VIAL SUBCUT SCH ×3 (05:28→21:29)
[2019-05-16] MEDS ORDERED: VANCOMYCIN HCL 1,000 MG in DEXTROSE 5%-WATER 250 ML IV ONE (05:30)
[2019-05-16] MEDS: NORMAL SALINE 1000 ML 1,000 ML IV PRN ×2 (06:26→09:22)
--- NOTE | 2019-05-16 06:49 | Progress Note ---
<TRINH RAMIREZ - Last Filed: 05/16/19 06:13> Provider Note Provider Note: Date/Time of encounter: 05/16/2019 at 00:30 AM HPI: Mrs. Hinson is a 44-year-old female with UTI and sepsis likely secondary to pyelonephritis for which the ICU team was asked to evaluate the patient by Dr. Campbell to determine if the patient needs to be admitted to ICU. Patient noted to have UTI with pyuria, bilateral CVA tenderness combined with tachycardia HR 117, tachypnea RR 22-23, and a systolic blood pressure in the low 90s on admission for which she received a 30 cc/kg sepsis bolus of crystalloid solution and was placed on Norepinephrine just prior to my evaluation. Her HR is now in the 60's in NSR with trigeminal PVC's, BP improved, tachypnea improved, unlabored. Patient denies cardiac Hx to include CAD, AK, CHF. I performed a [id number] ultrasound demonstrating the patient appears to be fluid tolerant with respirophasic changes of the IVC, ventricles without gross wall motion abnormalities at this time. Physical exam: A&O x4, no cognitive deficits. S1S2 no M/R/G; NSR with trigeminal PVC's on tele monitor Lungs CTA bilaterally Hypoactive bowel sounds LLQ and inferior midline abdominal TTP which has been chronic for her the past ~6 months. Reportedly scheduled for outpatient colonoscopy today or tomorrow. Reports chronic diarrhea for several months as well. Bilateral CVA tenderness as above. Does not have a fry and urine I see is absorbed by a cecily pad in the bedside commode for which there appears to be a sufficient quantity. Labs: significant for no leukocytosis, though bandemia present; hypokalemia for which patient received 40 mEq of Potassium PO. Lactatemia resolved Imaging: CT abdomen with small hiatal hernia, mild hepatic steatosis, bilateral hypodensities suspicious for bilateral pyelonephritis, 10 mm L renal cyst vs abscess without obstructive pathology. Recommendations: -500 mL LR bolus x1 now for which I will order. -Wean Norepinephrine for MAP >65. If unable to wean pressor off and self- regulate MAP >65 after aforementioned interventions, then will admit patient to the ICU. However, I anticipate patient will be able to be successfully weaned off Norepinephrine and able to be admitted to IMCU. I will follow up to re- evaluate the patient. I personally weaned the Norepinephrine from 8 mcg/min to 4 mcg/min upon initial evaluation given a MAP in the 90's. Will continue to assist RN with weaning of medication as patient tolerates. -would check Mg/Phos levels given chronic diarrhea pt reports over past several months as may be contributing to trigeminal PVC's -patient will likely require more potassium repletion Follow up re-assessment: Patient weaned off Norepinephrine and self-regulating MAP >65 for over an hour. Vital signs stable. No ICU indication at this time. Recommend empiric Abx treating for complicated UTI. Okay for IMCU from ICU standpoint. If patient condition worsens and/or patient becomes hypotensive again, please do not hesitate to call ICU team back for re-evaluation. <BLESSING OLSON - Last Filed: 05/16/19 19:01> Provider Note Provider Note: Case and care discussed with CHRIS Ramirez. Agree with plans care and findings.
[2019-05-16] MEDS ORDERED: INFLUENZA QUAD (6MOS+) 2019-20 VAC 0.5 ML SYR IM ONE (07:30)
[2019-05-16 07:36] LABS: URINE AMPHETAMINES SCREEN NEGATIVE; URINE BARBITURATES SCREEN NEGATIVE; URINE BENZODIAZEPINES SCREEN NEGATIVE; URINE COCAINE SCREEN NEGATIVE; URINE MARIJUANA (THC) SCREEN NEGATIVE; URINE METHADONE SCREEN NEGATIVE; URINE PHENCYCLIDINE SCREEN NEGATIVE
[2019-05-16] MEDS: ACETAMINOPHEN 325 MG TABLET PO PRN ×2 (08:24→21:24)
[2019-05-16] MEDS ORDERED: MAGNESIUM SULFATE/D5W 1 GM/100 ML RTUPB IV ONE (08:30)
[2019-05-16] MEDS: DOCUSATE SODIUM 100 MG CAPSULE PO SCH ×2 (09:08→17:03)
[2019-05-16 10:51] LABS: PATH REVIEW PATHOLOGIST REVIEWED
[2019-05-16] MEDS ORDERED: OXYCODONE-ACETAMINOPHEN 5-325 MG TABLET PO PRN (12:44)
[2019-05-16] MEDS ORDERED: METOPROLOL TARTRATE PF/INJ 5 MG/5 ML SDV IV PRN (12:44)
[2019-05-16] MEDS ORDERED: MORPHINE SULFATE 10 MG/ML INJ IV PRN (12:44)
[2019-05-16] MEDS ORDERED: HYDRALAZINE HCL INJ/PF 20 MG/1 ML SDV IV PRN (12:44)
[2019-05-16] MEDS ORDERED: (PENDING PHARMACY ID) (Gabapentin [Gabapentin] 800 MG) PO SCH (14:00)
[2019-05-16] MEDS: GABAPENTIN 400 MG CAPSULE PO SCH ×2 (14:20→21:23)
[2019-05-16] MEDS: CEFTRIAXONE 1 GM/D5W RTU 1 GM/50 ML RTUPB IV SCH (17:22)
[2019-05-16] MEDS: DULOXETINE HCL 30 MG CAPSULE.DR PO SCH (21:24)
[2019-05-16] MEDS: ZOLPIDEM TARTRATE 5 MG TABLET PO SCH (21:24)
[2019-05-16] MEDS ORDERED: (PENDING PHARMACY ID) (Eszopiclone [Lunesta] 1 MG) PO SCH (22:00)
[2019-05-17] MEDS: ACETAMINOPHEN 325 MG TABLET PO PRN ×2 (03:12→19:38)
[2019-05-17 05:08] LABS: ABSOLUTE EOSINOPHILS # (AUTO) 0.2 10^3/uL (0.0-0.6); ABSOLUTE MONOCYTES (AUTO) 0.7 10^3/uL (0.1-1.4); ABSOLUTE NEUT (AUTO) 5.7 10^3/uL (1.7-8.2); BASOPHILS % (AUTO) 0.4 % (0-2); EOSINOPHILS % (AUTO) 2.5 % (0-6); HEMATOCRIT 31.7 % (36.0-47.0); HEMOGLOBIN 11.3 g/dL (12.0-15.5); LYMPHOCYTES % (AUTO) 13.7 % (13-45); MEAN CORPUSCULAR HEMOGLOBIN 31.3 pg (27.0-33.4); MEAN CORPUSCULAR HGB CONC 35.7 g/dL (32.0-36.0); MEAN CORPUSCULAR VOLUME 88 fl (80-97); MONOCYTES % (AUTO) 8.7 % (3-13); PLATELET COUNT 113 10^3/uL (150-450); RED BLOOD COUNT 3.61 10^6/uL (3.72-5.28); RED CELL DISTRIBUTION WIDTH 13.5 % (11.5-14.0); SEGMENTED NEUTROPHILS % (AUTO) 74.7 % (42-78); TOTAL CELLS COUNTED % (AUTO) 100 %; WHITE BLOOD COUNT 7.6 10^3/uL (4.0-10.5)
[2019-05-17 05:29] LABS: ANION GAP 6 (5-19); BLOOD UREA NITROGEN 11 mg/dL (7-20); CALCIUM 7.5 mg/dL (8.4-10.2); CARBON DIOXIDE 24 mmol/L (22-30); CHLORIDE 110 mmol/L (98-107); CHOLESTEROL 98.52 mg/dL (0-200); GLUCOSE 81 mg/dL (75-110); POTASSIUM 3.3 mmol/L (3.6-5.0); TRIGLYCERIDES 96 mg/dL (<150)
[2019-05-17] MEDS: GABAPENTIN 400 MG CAPSULE PO SCH ×3 (05:34→21:24)
[2019-05-17] MEDS: HEPARIN SOD (PORCINE) 5,000 UNIT/ML 1 ML VIAL SUBCUT SCH ×3 (05:36→22:38)
[2019-05-17 05:40] LABS: DIRECT LDL 48 mg/dL (<100)
[2019-05-17] MEDS ORDERED: POTASSIUM CHLORIDE 10 MEQ TABLET.ER PO ONE (08:15)
[2019-05-17] MEDS: DOCUSATE SODIUM 100 MG CAPSULE PO SCH ×2 (09:02→17:44)
--- NOTE | 2019-05-17 09:30 | PDOC PROGRESS REPORT ---
Subjective Progress Note for:: 05/17/19 Subjective:: DENI DELGADO is a 44 year old female with a past medical history of morbid obesity, fibromyalgia, chronic pain, tobacco dependence and cannabis use. She presents with 3 days of intermittent fever and malodorous urine prompting evaluation in the emergency room where she is found to have hypotension, pyuria and bilateral pyelonephritis by CT without hydronephrosis, nephrolithiasis or abscess. She receives 6-1/2 L of saline and approximately 30 minutes of Levo phed which is weaned off. She is lying flat and comfortable without tachypnea or tachycardia. She is referred to the hospitalist for admission. She otherwise denies recent UTI or antibiotic use. 05/17/2019. No acute events overnight. Complaining of headache, dysuria and left flank pain otherwise denies any fever, chills, nausea, vomiting, diarrhea, constipation or any urinary symptoms. Reason For Visit: PYELONEPHRITS SEPSIS Physical Exam Vital Signs: Temp Pulse Resp BP Pulse Ox 98.5 F 80 17 116/61 95 05/17/19 03:06 05/17/19 07:00 05/17/19 03:06 05/17/19 03:06 05/17/19 03:06 Intake & Output 05/16/19 05/17/19 05/18/19 06:59 06:59 06:59 Intake Total 5619 2884 Balance 5619 2884 Weight 102.2 kg 104.3 kg General appearance: PRESENT: morbidly obese Head exam: PRESENT: atraumatic, normocephalic Neck exam: ABSENT: carotid bruit, JVD, lymphadenopathy, thyromegaly Respiratory exam: PRESENT: clear to auscultation mitul. ABSENT: rales, rhonchi, wheezes Cardiovascular exam: PRESENT: RRR. ABSENT: diastolic murmur, rubs, systolic m urmur GI/Abdominal exam: PRESENT: normal bowel sounds, soft. ABSENT: distended, guarding, mass, organolmegaly, rebound, tenderness Extremities exam: PRESENT: full ROM. ABSENT: calf tenderness, clubbing, pedal edema Musculoskeletal exam: PRESENT: tenderness - Left CVA tenderness Neurological exam: PRESENT: alert, awake, oriented to person, oriented to place, oriented to time, oriented to situation, CN II-XII grossly intact. ABSENT: motor sensory deficit Results Laboratory Results: 05/17/19 04:12 05/17/19 04:12 05/17/19 05/17/19 05/17/19 04:12 04:12 04:12 WBC 7.6 RBC 3.61 L Hgb 11.3 L Hct 31.7 L MCV 88 MCH 31.3 MCHC 35.7 RDW 13.5 Plt Count 113 L Seg Neutrophils % 74.7 Sodium 140.3 Potassium 3.3 L Chloride 110 H Carbon Dioxide 24 Anion Gap 6 BUN 11 Creatinine 0.63 Est GFR ( Amer) > 60 Glucose 81 Calcium 7.5 L Triglycerides 96 Cholesterol 98.52 LDL Cholesterol Direct 48 VLDL Cholesterol 19.0 HDL Cholesterol 27 L TSH 3.41 05/15/19 17:59 Blood Blood Culture (PCR) - Final Escherichia Coli Impressions: Chest X-Ray 05/15/19 16:12 IMPRESSION: NO ACUTE RADIOGRAPHIC FINDING IN THE CHEST. Abdomen/Pelvis CT 05/15/19 19:18 IMPRESSION: 1. Several small bilateral renal hypodensities suspicious for pyelonephritis. A single lesion in the left kidney is more cystic and may represent a simple cyst less likely a small abscess. 2. Mild fatty liver. Nonspecific bowel pattern with increased fluid in stomach and large bowel loops. Small hiatal hernia. IUD in good position. Assessment and Plan - Diagnosis (1) Pyelonephritis Is this a current diagnosis for this admission?: Yes Plan: Improving. WBC WNL. Afebrile. Complaining of left costovertebral angle tenderness and discharge. 05/15/2019. CT abdomen several small bilateral renal hypodensities suspicious for pyelonephritis. Most likely due to E. coli. Denies any history of recent urogenital instrumentation, nephrolithiasis, or previous pyelonephritis. Day 2 IV antibiotics. Day 2 IV Rocephin. Received 1 day of vancomycin. Urine culture positive for E. coli pending sensitivity. Blood culture positive for gram-negative rods pending sensitivity. (2) Gram-negative bacteremia Is this a current diagnosis for this admission?: Yes Plan: Likely source pyelonephritis. Blood culture 05/15/2019 growing gram-negative rods pending sensitivity. Repeat blood culture. Plan as per #1. (3) Tobacco abuse Is this a current diagnosis for this admission?: Yes Plan: Consult on quitting. NicoDerm patch will be provided. (4) UTI (urinary tract infection) Qualifiers: Urinary tract infection type: site unspecified Hematuria presence: without hematuria Qualified Code(s): N39.0 - Urinary tract infection, site not specified Is this a current diagnosis for this admission?: Yes Plan: Pyelonephritis. Plan as per 1. (5) Hypotension Is this a current diagnosis for this admission?: Yes Plan: Resolved. Due to sepsis on admission. Monitor vitals. Treat underlying infectious process. (6) Sepsis Qualifiers: Sepsis type: sepsis due to unspecified organism Sepsis acute organ dysfunction status: unspecified Qualified Code(s): A41.9 - Sepsis, unspecified organism Is this a current diagnosis for this admission?: Yes Plan: Resolved. Most likely due to underlying pyelonephritis. Treat underlying infectious process. (7) Obesity Qualifiers: Obesity type: due to excess calories Body mass index: BMI 39.0-39.9 Is this a current diagnosis for this admission?: Yes Plan: Diet and lifestyle modification recommended. Hemoglobin A1c 4.8%. Lipid panel WNL. TSH WNL. Likely bariatric intervention candidate. (8) Depression Is this a current diagnosis for this admission?: Yes Plan: Denies any suicidal or homicidal ideation. Restart home meds. Outpatient PCP and psychiatry follow-up. (9) Fibromyalgia Is this a current diagnosis for this admission?: Yes Plan: Resume home meds. Outpatient PCP follow-up. (10) Septic shock Is this a current diagnosis for this admission?: Yes Plan: Resolved.
--- NOTE | 2019-05-17 09:56 | CDI QUERY ---
CDI Query CDI Review: Dear VIJI, To better reflect your patients severity of illness, morbidity, and resource utilization Please LINK any condition to present on admission, if applicable. The terms probable, suspected, likely, possible or still to be ruled out may be used. If you agree, please add to the Progress Notes and Discharge Summary Query Clinical indicators HYPOVOLEMIC SHOCK, RESOLVED SEPTIC SHOCK, RESOLVED OTHER? tachycardia HR 117, tachypnea RR 22-23, and a systolic blood pressure in the low 90s on admission for which she received a 30 cc/kg sepsis bolus of crystalloid solution and was placed on Norepinephrine -500 mL LR bolus x1 now for which I will order. -Wean Norepinephrine for MAP >65. If unable to wean pressor off and self- regulate MAP >65 after aforementioned interventions, then will admit patient to the ICU. However, I anticipate patient will be able to be successfully weaned off Norepinephrine and able to be admitted to IMCU Patient weaned off Norepinephrine and self-regulating MAP >65 for over an hour. Vital signs stable. No ICU indication at this time SEPSIS / UTI / bilateral pyelonephritis Thank you, CHRISTINA Clinical Documentation [employer] [facility] [place] Office [phone]
[2019-05-17] MEDS: CEFTRIAXONE 1 GM/D5W RTU 1 GM/50 ML RTUPB IV SCH (17:49)
[2019-05-17] MEDS: DULOXETINE HCL 30 MG CAPSULE.DR PO SCH (21:24)
[2019-05-17] MEDS: ZOLPIDEM TARTRATE 5 MG TABLET PO SCH (21:24)
[2019-05-18 05:26] LABS: ABSOLUTE EOSINOPHILS # (AUTO) 0.2 10^3/uL (0.0-0.6); ABSOLUTE LYMPHOCYTES (AUTO) 1.8 10^3/uL (0.5-4.7); ABSOLUTE MONOCYTES (AUTO) 0.6 10^3/uL (0.1-1.4); ABSOLUTE NEUT (AUTO) 4.2 10^3/uL (1.7-8.2); BASOPHILS % (AUTO) 0.5 % (0-2); EOSINOPHILS % (AUTO) 3.2 % (0-6); HEMATOCRIT 32.5 % (36.0-47.0); HEMOGLOBIN 11.5 g/dL (12.0-15.5); LYMPHOCYTES % (AUTO) 26.1 % (13-45); MEAN CORPUSCULAR HEMOGLOBIN 30.9 pg (27.0-33.4); MEAN CORPUSCULAR HGB CONC 35.5 g/dL (32.0-36.0); MEAN CORPUSCULAR VOLUME 87 fl (80-97); MONOCYTES % (AUTO) 9.4 % (3-13); PLATELET COUNT 147 10^3/uL (150-450); RED BLOOD COUNT 3.74 10^6/uL (3.72-5.28); RED CELL DISTRIBUTION WIDTH 13.4 % (11.5-14.0); SEGMENTED NEUTROPHILS % (AUTO) 60.8 % (42-78); TOTAL CELLS COUNTED % (AUTO) 100 %; WHITE BLOOD COUNT 6.9 10^3/uL (4.0-10.5)
[2019-05-18 05:28] LABS: ANION GAP 7 (5-19); BLOOD UREA NITROGEN 8 mg/dL (7-20); CALCIUM 7.8 mg/dL (8.4-10.2); CARBON DIOXIDE 25 mmol/L (22-30); CHLORIDE 109 mmol/L (98-107); GLUCOSE 81 mg/dL (75-110); POTASSIUM 3.4 mmol/L (3.6-5.0)
[2019-05-18] MEDS: ACETAMINOPHEN 325 MG TABLET PO PRN (05:28)
[2019-05-18] MEDS: GABAPENTIN 400 MG CAPSULE PO SCH (05:28)
[2019-05-18] MEDS: HEPARIN SOD (PORCINE) 5,000 UNIT/ML 1 ML VIAL SUBCUT SCH (06:07)
[2019-05-18] MEDS: DOCUSATE SODIUM 100 MG CAPSULE PO SCH (09:28)
[2019-05-18] MEDS ORDERED: POTASSIUM CHLORIDE 10 MEQ TABLET.ER PO ONE (10:28)
[2019-05-18 11:14] VITALS: BP 105/58
--- NOTE | 2019-05-20 17:53 | PDOC DISCHARGE SUMMARY ---
Impression - Admit/DC Date/PCP Admission Date/Primary Care Provider: 05/16/19 05:13 GUILLERMO KABA Discharge Date: 05/18/19 - Discharge Diagnosis (1) Pyelonephritis Is this a current diagnosis for this admission?: Yes (2) Gram-negative bacteremia Is this a current diagnosis for this admission?: Yes (3) Tobacco abuse Is this a current diagnosis for this admission?: Yes (4) UTI (urinary tract infection) Is this a current diagnosis for this admission?: Yes (5) Hypotension Is this a current diagnosis for this admission?: Yes (6) Sepsis Is this a current diagnosis for this admission?: Yes (7) Obesity Is this a current diagnosis for this admission?: Yes (8) Depression Is this a current diagnosis for this admission?: Yes (9) Fibromyalgia Is this a current diagnosis for this admission?: Yes (10) Septic shock Is this a current diagnosis for this admission?: Yes - Additional Information Resuscitation Status: Full Code Discharge Diet: As Tolerated Discharge Activity: Activity As Tolerated, Balance Activity w/Rest Referrals: ALINA HUITRON FNP-C [Primary Care Provider] - 05/25/19 9:00 am Prescriptions: Levofloxacin [Levaquin] 500 mg PO DAILY 7 Days #7 tablet Home Medications: Duloxetine HCl [Cymbalta] 60 mg PO QHS 05/16/19 Eszopiclone [Lunesta] 1 mg PO QHS 05/16/19 Gabapentin 800 mg PO Q8 05/16/19 Levofloxacin [Levaquin] 500 mg PO DAILY 7 Days #7 tablet 05/18/19 History of Present Illiness History of Present Illness: DENI DELGADO is a 44 year old female with a past medical history of morbid obesity, fibromyalgia, chronic pain, tobacco dependence and cannabis use. She presents with 3 days of intermittent fever and malodorous urine prompting evaluation in the emergency room where she is found to have hypotension, pyuria and bilateral pyelonephritis by CT without hydronephrosis, nephrolithiasis or abscess. She receives 6-1/2 L of saline and approximately 30 minutes of Levophed which is weaned off. She is lying flat and comfortable without tachypnea or tachycardia. She is referred to the hospitalist for admission. She otherwise denies recent UTI or antibiotic use. Hospital Course Hospital Course: (1) Pyelonephritis Due to E. coli pansensitive. Moderate improvement. WBC WNL. Afebrile. Left CVA tenderness resolved. 05/15/2019. CT abdomen several small bilateral renal hypodensities suspicious for pyelonephritis. Denied any history of recent urogenital instrumentation, nephrolithiasis, or previous pyelonephritis. Received 3 days of IV antibiotics. Received 3 days of IV Rocephin. Received 1 day of vancomycin. Discharged on p.o. levofloxacin for another 7 days. (2) Gram-negative bacteremia Likely source pyelonephritis. Blood culture 05/15/2019 growing gram-negative rods pending sensitivity. Repeat blood culture. Plan as per #1. (3) Tobacco abuse Consult on quitting. NicoDerm patch will be provided. (4) UTI (urinary tract infection) Pyelonephritis. Plan as per 1. (5) Hypotension Resolved. Due to sepsis on admission. Monitor vitals. Treat underlying infectious process. (6) Sepsis Resolved. Most likely due to underlying pyelonephritis. Treat underlying infectious process. (7) Obesity Diet and lifestyle modification recommended. Hemoglobin A1c 4.8%. Lipid panel WNL. TSH WNL. Likely bariatric intervention candidate. (8) Depression Denied any suicidal or homicidal ideation. Restarted home meds. Outpatient PCP and psychiatry follow-up. (9) Fibromyalgia Resume home meds. Outpatient PCP follow-up. (10) Septic shock Most likely due to #1. Resolved. Physical Exam Vital Signs: Temp Pulse Resp BP Pulse Ox 97.5 F 60 18 105/58 L 95 05/18/19 10:58 05/18/19 10:58 05/18/19 10:58 05/18/19 10:58 05/18/19 10:58 General appearance: PRESENT: no acute distress, obese, well-developed, well- nourished Head exam: PRESENT: atraumatic, normocephalic Respiratory exam: PRESENT: clear to auscultation mitul. ABSENT: rales, rhonchi, wheezes Cardiovascular exam: PRESENT: RRR. ABSENT: diastolic murmur, rubs, systolic murmur GI/Abdominal exam: PRESENT: normal bowel sounds, soft. ABSENT: distended, guarding, mass, organolmegaly, rebound, tenderness Neurological exam: PRESENT: alert, awake, oriented to person, oriented to place, oriented to time, oriented to situation, CN II-XII grossly intact. ABSENT: motor sensory deficit Results Laboratory Results: WBC 6.9 10^3/uL (4.0-10.5) 05/18/19 04:29 RBC 3.74 10^6/uL (3.72-5.28) 05/18/19 04:29 Hgb 11.5 g/dL (12.0-15.5) L 05/18/19 04:29 Hct 32.5 % (36.0-47.0) L 05/18/19 04:29 MCV 87 fl (80-97) 05/18/19 04:29 MCH 30.9 pg (27.0-33.4) 05/18/19 04:29 MCHC 35.5 g/dL (32.0-36.0) 05/18/19 04:29 RDW 13.4 % (11.5-14.0) 05/18/19 04:29 Plt Count 147 10^3/uL (150-450) L 05/18/19 04:29 Lymph % (Auto) 26.1 % (13-45) 05/18/19 04:29 [place] % (Auto) 9.4 % (3-13) 05/18/19 04:29 Eos % (Auto) 3.2 % (0-6) 05/18/19 04:29 Baso % (Auto) 0.5 % (0-2) 05/18/19 04:29 Absolute Neuts (auto) 4.2 10^3/uL (1.7-8.2) 05/18/19 04:29 Absolute Lymphs (auto) 1.8 10^3/uL (0.5-4.7) 05/18/19 04:29 Absolute Monos (auto) 0.6 10^3/uL (0.1-1.4) 05/18/19 04:29 Absolute Eos (auto) 0.2 10^3/uL (0.0-0.6) 05/18/19 04:29 Absolute Basos (auto) 0.0 10^3/uL (0.0-0.2) 05/18/19 04:29 Total Counted 100 05/15/19 16:15 Seg Neutrophils % 60.8 % (42-78) 05/18/19 04:29 Seg Neuts % (Manual) 66 % (42-78) 05/15/19 16:15 Band Neutrophils % 24 % (3-5) H 05/15/19 16:15 Lymphocytes % (Manual) 6 % (13-45) L 05/15/19 16:15 Atypical Lymphs % 2 % (0) 05/15/19 16:15 Monocytes % (Manual) 0 % (3-13) L 05/15/19 16:15 Eosinophils % (Manual) 0 % (0-6) 05/15/19 16:15 Basophils % (Manual) 0 % (0-2) 05/15/19 16:15 Metamyelocytes % 2 % (0-1) H 05/15/19 16:15 Abs Neuts (Manual) 7.0 10^3/uL (1.7-8.2) 05/15/19 16:15 Abs Lymphs (Manual) 0.6 10^3/uL (0.5-4.7) 05/15/19 16:15 Abs Monocytes (Manual) 0.0 10^3/uL (0.1-1.4) L 05/15/19 16:15 Absolute Eos (Manual) 0.0 10^3/uL (0.0-0.6) 05/15/19 16:15 Abs Basophils (Manual) 0.0 10^3/uL (0.0-0.2) 05/15/19 16:15 Toxic Vacuolation PRESENT 05/15/19 16:15 Large Platelets PRESENT 05/15/19 16:15 Platelet Comment ADEQUATE 05/15/19 16:15 Polychromasia SLIGHT 05/15/19 16:15 PT 14.5 SEC (11.4-15.4) 05/15/19 16:15 INR 1.13 05/15/19 16:15 VBG pH 7.51 (7.30-7.42) H 05/15/19 16:15 VBG pCO2 30.7 mmHg (35-63) L 05/15/19 16:15 VBG HCO3 23.7 mmol/L (20-32) 05/15/19 16:15 VBG Base Excess 1.7 mmol/L 05/15/19 16:15 Sodium 140.8 mmol/L (137-145) 05/18/19 04:29 Potassium 3.4 mmol/L (3.6-5.0) L 05/18/19 04:29 Chloride 109 mmol/L (98-107) H 05/18/19 04:29 Carbon Dioxide 25 mmol/L (22-30) 05/18/19 04:29 Anion Gap 7 (5-19) 05/18/19 04:29 BUN 8 mg/dL (7-20) 05/18/19 04:29 Creatinine 0.57 mg/dL (0.52-1.25) 05/18/19 04:29 Est GFR ( Amer) > 60 (>60) 05/18/19 04:29 Est GFR (MDRD) Non-Af > 60 (>60) 05/18/19 04:29 Glucose 81 mg/dL (75-110) 05/18/19 04:29 POC Glucose 123 mg/dL (70-110) H 05/15/19 16:20 Hemoglobin A1c % 4.8 % (4.7-6.0) 05/17/19 04:12 Lactic Acid 0.6 mmol/L (0.7-2.1) L 05/16/19 06:02 Calcium 7.8 mg/dL (8.4-10.2) L 05/18/19 04:29 Phosphorus 2.8 mg/dL (2.5-4.5) 05/16/19 01:30 Magnesium 2.0 mg/dL (1.6-2.3) 05/18/19 04:29 Total Bilirubin 1.9 mg/dL (0.2-1.3) H 05/15/19 16:15 Direct Bilirubin 0.4 mg/dL (0.0-0.4) 05/15/19 16:15 Neonat Total Bilirubin Not Reportable 05/15/19 16:15 Neonat Direct Bilirubin Not Reportable 05/15/19 16:15 Neonat Indirect Bili Not Reportable 05/15/19 16:15 AST 76 U/L (14-36) H 05/15/19 16:15 ALT 37 U/L (<35) H 05/15/19 16:15 Alkaline Phosphatase 117 U/L (38-126) 05/15/19 16:15 Total Protein 6.4 g/dL (6.3-8.2) 05/15/19 16:15 Albumin 3.3 g/dL (3.5-5.0) L 05/15/19 16:15 Triglycerides 96 mg/dL (<150) 05/17/19 04:12 Cholesterol 98.52 mg/dL (0-200) 05/17/19 04:12 LDL Cholesterol Direct 48 mg/dL (<100) 05/17/19 04:12 VLDL Cholesterol 19.0 mg/dL (10-31) 05/17/19 04:12 HDL Cholesterol 27 mg/dL (>40) L 05/17/19 04:12 TSH 3.41 uIU/mL (0.47-4.68) 05/17/19 04:12 Urine Color BLAYNE 05/15/19 17:22 Urine Appearance CLOUDY 05/15/19 17:22 Urine pH 5.0 (5.0-9.0) 05/15/19 17:22 Ur Specific [place] 1.013 05/15/19 17:22 Urine Protein 30 mg/dL (NEGATIVE) H 05/15/19 17:22 Urine Glucose (UA) NEGATIVE mg/dL (NEGATIVE) 05/15/19 17:22 Urine Ketones NEGATIVE mg/dL (NEGATIVE) 05/15/19 17:22 Urine Blood MODERATE (NEGATIVE) H 05/15/19 17:22 Urine Nitrite (Reflex) POSITIVE (NEGATIVE) H 05/15/19 17:22 Urine Bilirubin NEGATIVE (NEGATIVE) 05/15/19 17:22 Urine Urobilinogen 2.0 mg/dL (<2.0) H 05/15/19 17:22 Leukocyte Esterase Rfl MODERATE (NEGATIVE) H 05/15/19 17:22 Urine RBC (Auto) 11 /HPF 05/15/19 17:22 Urine Bacteria (Auto) 3+ /HPF 05/15/19 17:22 Urine WBC (Reflex) > 182 /HPF 05/15/19 17:22 Urine WBC Clumps FEW /HPF 05/15/19 17:22 Squamous Epi Cells Auto 41 /HPF 05/15/19 17:22 U Non-Squamous Epis Auto 1 /HPF 05/15/19 17:22 Amorphous Sediment Auto TRACE /HPF 05/15/19 17:22 Urine Mucus (Auto) FEW /LPF 05/15/19 17:22 Urine Ascorbic Acid NEGATIVE (NEGATIVE) 05/15/19 17:22 Urine HCG, Qual NEGATIVE (NEGATIVE) 05/15/19 17:22 Urine Opiates Screen NEGATIVE 05/15/19 17:22 Urine Methadone Screen NEGATIVE 05/15/19 17:22 Ur Barbiturates Screen NEGATIVE 05/15/19 17:22 Ur Phencyclidine Scrn NEGATIVE 05/15/19 17:22 Ur Amphetamines Screen NEGATIVE 05/15/19 17:22 U Benzodiazepines Scrn NEGATIVE 05/15/19 17:22 Urine Cocaine Screen NEGATIVE 05/15/19 17:22 U Marijuana (THC) Screen NEGATIVE 05/15/19 17:22 Influenza A (Rapid) NEGATIVE (NEGATIVE) 05/15/19 17:07 Influenza B (Rapid) NEGATIVE (NEGATIVE) 05/15/19 17:07 Slides for Path Review PATHOLOGIST REVIEWED 05/15/19 16:15 Impressions: Chest X-Ray 05/15/19 16:12 IMPRESSION: NO ACUTE RADIOGRAPHIC FINDING IN THE CHEST. Abdomen/Pelvis CT 05/15/19 19:18 IMPRESSION: 1. Several small bilateral renal hypodensities suspicious for pyelonephritis. A single lesion in the left kidney is more cystic and may represent a simple cyst less likely a small abscess. 2. Mild fatty liver. Nonspecific bowel pattern with increased fluid in stomach and large bowel loops. Small hiatal hernia. IUD in good position. Stroke Is this a Stroke Patient?: No Acute Heart Failure - Is this a Heart Failure Patient?: No
== END 2019-05-18 12:46 | disposition home or self-care (01) | DRG 872 ==
LOC: ER 15:55 → EH 05-16 05:13 → 3W 05-16 06:40
PROVIDERS: ADMIT Internal Medicine; ATTEND Internal Medicine
DX: A41.51 Sepsis due to Escherichia coli [E. coli] (principal); N12 Tubulo-interstitial nephritis, not specified as acute or chronic; M79.7 Fibromyalgia; E66.01 Morbid (severe) obesity due to excess calories; F12.90 Cannabis use, unspecified, uncomplicated; F17.200 Nicotine dependence, unspecified, uncomplicated; B96.20 Unspecified Escherichia coli [E. coli] as the cause of diseases classified elsewhere; F32.9 Major depressive disorder, single episode, unspecified; Z90.49 Acquired absence of other specified parts of digestive tract
CPT/HCPCS: 36415; 71045; 74177; 80048; 80053; 80061; 80307; 81001; 81025; 82803; 82962; 83036; 83605; 83735; 84100; 84443; 85025; 85610; 87040; 87077; 87150; 87186; 87804; 93005; 93010; 96361; 96365; 96366; 96367; 96376; 99285; J0696; J1644; J2270; J3370; J3475; J3480; J3490; J7030; J7060; J7120

== ENCOUNTER 2019-10-04 22:52 | Emergency (ER) | payer BC, MEDICAID ==
[2019-10-04] MEDS ORDERED: ACETAMINOPHEN 325 MG TABLET PO ONE (23:23)
--- NOTE | 2019-10-04 23:25 | ER Document Report ---
ED Medical Screen (RME) - General Chief Complaint: Facial Injury Stated Complaint: INJURY TO NOSE/BLEEDING Time Seen by Provider: 10/04/19 23:20 Primary Care Provider: ALINA HUITRON FNP-C [Primary Care Provider] - Follow up as needed Mode of Arrival: Wheelchair Information source: Patient Notes: HPI; 44-year-old female presents to the emergency room after a trip and fall at home landing face forward on hardwood floors. Denies any loss of consciousness. Complains of moderate amount of bleeding to her nose. Not currently on blood thinners. Denies any loss of consciousness. No meds for symptoms. Drove self to the ER. PE: Alert and oriented x3. Mild distress noted. Moderate swelling and tenderness noted to the bridge of nose with deformity noted. Active bleeding to the left nare. Ice pack applied. BONITA LANGLEY. I have greeted and performed a rapid initial assessment of this patient. A comprehensive ED assessment and evaluation of the patient, analysis of test results and completion of the medical decision making process will be conducted by additional ED providers. I have specifically instructed the patient or family members with the patient to immediately return to any nursing staff should anything change in the patient's condition or with their chief complaint. TRAVEL OUTSIDE OF THE [place] IN LAST 30 DAYS: No - Related Data Allergies/Adverse Reactions: No Known Allergies Allergy (Verified 10/04/19 23:23) Past Medical History Renal/ Medical History: Denies: Hx Peritoneal Dialysis Psychiatric Medical History: Reports: Hx Depression Past Surgical History: Reports: Hx Appendectomy, Hx Orthopedic Surgery, Hx Tonsillectomy Physical Exam - Vital signs Vitals: Pulse Resp BP Pulse Ox 101 H 16 135/105 H 99 10/04/19 22:57 10/04/19 22:57 10/04/19 22:57 10/04/19 22:57 Course - Vital Signs Vital signs: Temp Pulse Resp BP Pulse Ox 101 H 16 135/105 H 99 10/04/19 22:57 10/04/19 22:57 10/04/19 22:57 10/04/19 22:57 Doctor's Discharge - Discharge Referrals: ALINA HUITRON FNP-C [Primary Care Provider] - Follow up as needed
--- NOTE | 2019-10-05 00:15 | RADIOLOGY REPORT (SQ) ---
EXAM DESCRIPTION: CT MAXILLOFACIAL WITHOUT IV CONTRAST COMPLETED DATE/TME: 10/04/2019 23:23 CLINICAL HISTORY: facial trauma COMPARISON: None available TECHNIQUE: Axial CT of the facial bone obtained without contrast. Coronal and sagittal reformatted images available. FINDINGS: Orbits: Orbital floors and mathis are intact. Intraorbital contents: The globes are intact. Extraocular muscles are symmetric. No intraconal fat stranding. Nasal bones: Nondisplaced fracture of the left nasal bone. Diastases of the bilateral nasomaxillary sutures. Minimally displaced fracture of the anterior nasal septum with minimal rightward deviation. Maxilla: The maxillary hard palate is intact. Maxillary antral mathis are intact. Nondisplaced fracture of the nasal spine of the maxilla. Sinuses: Paranasal sinuses are well aerated. Zygomatic processes: Intact Pterygoid plates: Intact Mandible: Intact. No mandibular condylar dislocation. Skull base/cervical spine: Visualized portions of the skull base and cervical spine are intact. Visualized mastoid air cells are well aerated. Degenerative change of the visualized spine. Subcutaneous soft tissues: Mild soft tissue edema of the nose and upper lip. Neck soft tissues: No definite abnormality involving the nasopharynx, oropharynx, or hypopharynx. Fossa of [place]muller are clear. Parotid glands and submandibular glands are unremarkable. No cervical lymphadenopathy. IMPRESSION: 1. Nondisplaced fracture of the left nasal bone. Diastases of the bilateral nasomaxillary sutures with minimal displacement. Minimally displaced fracture of the anterior nasal septum with minimal rightward deviation. 2. Nondisplaced fracture of the nasal spine of the maxilla. This exam was performed according to our departmental dose-optimization program, which includes automated exposure control, adjustment of the mA and/or kV according to patient size and/or use of iterative reconstruction technique.
[2019-10-05] MEDS ORDERED: HYDROCODONE/ACETAMINOPHEN 5-325 MG (6 TAB/ER DISP) PO PRN (03:10)
--- NOTE | 2019-10-05 03:18 | ER Document Report ---
ED Head/Face/Scalp Injury - General Chief Complaint: Facial Injury Stated Complaint: INJURY TO NOSE/BLEEDING Time Seen by Provider: 10/04/19 23:20 Primary Care Provider: MIRIAM ORTIZ DDS [ACTIVE STAFF] - Follow up tomorrow Mode of Arrival: Wheelchair Notes: Patient is a 44-year-old female that comes emergency department for chief complaint of facial injury. She states she tripped on her flip-flop and landed face down on her hardwood floor. She denies loss of consciousness but states she was bleeding heavily from her nose so she came in for evaluation. She denies alcohol, she is not on any blood thinners. She takes daily medications for fibromyalgia but denies medical history otherwise. Her tetanus is up-to-date within 1 year. She drove herself to the emergency department. TRAVEL OUTSIDE OF THE [place] IN LAST 30 DAYS: No - Related Data Allergies/Adverse Reactions: No Known Allergies Allergy (Verified 10/04/19 23:23) Past Medical History - General Information source: Patient - Social History Smoking Status: Current Every Day Smoker Frequency of alcohol use: Social Drug Abuse: None Lives with: Family Family History: Reviewed & Not Pertinent Patient has homicidal ideation: No Renal/ Medical History: Denies: Hx Peritoneal Dialysis Psychiatric Medical History: Reports: Hx Depression Past Surgical History: Reports: Hx Appendectomy, Hx Orthopedic Surgery, Hx Tonsillectomy - Immunizations Immunizations up to date: Yes Hx Diphtheria, Pertussis, Tetanus Vaccination: Yes Review of Systems - Review of Systems Constitutional: No symptoms reported EENT: See HPI Cardiovascular: No symptoms reported Respiratory: No symptoms reported Gastrointestinal: No symptoms reported Genitourinary: No symptoms reported Female Genitourinary: No symptoms reported Musculoskeletal: No symptoms reported Skin: No symptoms reported Hematologic/Lymphatic: No symptoms reported Neurological/Psychological: No symptoms reported Physical Exam - Vital signs Vitals: Pulse Resp BP Pulse Ox 101 H 16 135/105 H 99 10/04/19 22:57 10/04/19 22:57 10/04/19 22:57 10/04/19 22:57 - Notes Notes: GENERAL: Alert, interacts well. No acute distress. HEAD: Normocephalic, atraumatic. EYES: Pupils equal, round, and reactive to light. Extraocular movements intact. ENT: Oral mucosa moist, tongue midline. Oropharynx unremarkable. Airway patent. There is soft tissue swelling over the left upper bridge of the nose with some ecchymosis. There is dried epistaxis in the right nasal passage. There is mild edema of the face in the same region. Unremarkable ENT exam otherwise. NECK: Full range of motion. Supple. Trachea midline. No lymphadenopathy. LUNGS: Clear to auscultation bilaterally, no wheezes, rales, or rhonchi. No respiratory distress. Non-tender chest wall. HEART: Regular rate and rhythm. No murmur ABDOMEN: Soft, non-tender. Non-distended. EXTREMITIES: Moves all 4 extremities spontaneously. No edema, normal radial and dorsalis pedis pulses bilaterally. No cyanosis. BACK: no cervical, thoracic, lumbar midline tenderness. No saddle anesthesia, normal distal neurovascular exam. Moves all extremities in full range of motion. NEUROLOGICAL: Alert and oriented x3. Normal speech. Cranial nerves II through XII grossly intact. Strength 5/5 in all extremities. PSYCH: Normal affect, normal mood. SKIN: Warm, dry, normal turgor. No rashes or lesions noted. Course - Re-evaluation Re-evalutation: Patient presents to the emergency department with mechanical fall. She denies any other symptoms other than pain to her face and epistaxis after the fall. Epistaxis has resolved on its own, I do not see any evidence of septal hematoma, no other injuries are noted on physical exam. I did review CAT scan from triage and this shows nasal bone fracture on the left, maxillary fracture in the nasal portion on the left, neither one of these are significantly displaced. Patient insists that the deviated septum is old. I did discuss this however. I discussed all details, recommendations including antibiotics, oral maxillofacial surgery follow-up, and return precautions. I discussed care. I discussed with Dr. Montalvo. Patient states appreciation and agreement with plan. Stable and well-appearing at time of discharge. - Vital Signs Vital signs: Temp Pulse Resp BP Pulse Ox 97.8 F 65 18 168/97 H 99 10/05/19 02:13 10/05/19 03:28 10/05/19 03:28 10/05/19 03:28 10/05/19 03:28 Discharge - Discharge Clinical Impression: Deviated septum Facial injury Qualifiers: Encounter type: initial encounter Qualified Code(s): S09.93XA - Unspecified injury of face, initial encounter Nasal bone fracture Qualifiers: Encounter type: initial encounter Fracture type: closed Qualified Code(s): S02.2XXA - Fracture of nasal bones, initial encounter for closed fracture Maxillary fracture Qualifiers: Encounter type: initial encounter Fracture type: closed Laterality: left Qualified Code(s): S02.40DA - Maxillary fracture, left side, initial encounter for closed fracture Condition: Stable Disposition: HOME, SELF-CARE Additional Instructions: The imaging shows fracture to the nose, maxilla, and deviation of the septum as we discussed. Take the antibiotics as prescribed, take pain medication if needed, avoid blowing your nose as we discussed. Call the oral maxillofacial surgeon tomorrow, see referral listed. See additional instructions below. Return for any concerning symptoms including severe worsening pain, trouble with your vision, discolored drainage from the nose, or any other concerning or worsening symptoms. You have a fractured nose. The examination shows no evidence that the nose needs to be "set" or operated on. However, the physician must recheck the nose once the swelling has decreased. The final decision about straightening of the bones or surgery can be made once the swelling resolves. This usually takes three to five days. Rest in a reclining chair. Cold pack the nose for the next 24 to 36 hours. Do not blow the nose. This may increase the swelling or cause further bleeding. If you have painful swelling inside the nose or exquisite tenderness when the tip of the nose is touched, you should call the doctor at once or return for re-evaluation. You should also contact the doctor if you develop fever, purulent nasal drainage, increasing pain in the face, or problems with vision. Prescriptions: Amoxicillin Trihydrate [Amoxil 500 mg Capsule] 1,000 mg PO BID 7 Days #28 capsule Oxycodone HCl/Acetaminophen [Percocet 5-325 mg Tablet] 1 tab PO TID PRN #15 tab PRN Reason: Referrals: MIRIAM ORTIZ DDS [ACTIVE STAFF] - Follow up tomorrow
[2019-10-05 03:28] VITALS: BP 168/97
== END 2019-10-05 03:33 | disposition home or self-care (01) ==
LOC: ER 22:52
DX: S02.2XXA Fracture of nasal bones, initial encounter for closed fracture (principal); S02.40DA Maxillary fracture, left side, initial encounter for closed fracture; W01.0XXA Fall on same level from slipping, tripping and stumbling without subsequent striking against object, initial encounter; J34.2 Deviated nasal septum; M79.7 Fibromyalgia; Z79.899 Other long term (current) drug therapy; F17.200 Nicotine dependence, unspecified, uncomplicated
CPT/HCPCS: 70486; 99283

== ENCOUNTER → 2020-03-27 | Outpatient (CLI) | payer BC, MEDICAID ==
--- NOTE | 2020-03-27 08:51 | RADIOLOGY REPORT (SQ) ---
EXAM DESCRIPTION: MRI LUMBAR SPINE WITHOUT IMAGES COMPLETED DATE/TIME: 03/27/2020 8:38 am REASON FOR STUDY: LOW BACK PAIN M54.5 LOW BACK PAIN COMPARISON: None. TECHNIQUE: Sagittal and Axial imaging includes T1, T2, STIR and gradient echo sequences. Coronal T2/ HASTE imaging. LIMITATIONS: None. FINDINGS: VISUALIZED UPPER ABDOMEN: Limited evaluation. No acute or suspicious findings suggested. SEGMENTATION: No transitional anatomy. The lowest well-developed disc space is labeled L5-S1. ALIGNMENT: Anatomic. VERTEBRAE: Intact. BONE MARROW: Normal. No marrow replacement or reactive changes. DISC SIGNAL: Normal. No significant abnormal signal or loss of height. POSTERIOR ELEMENTS: Generally intact. Mild facet arthropathy in the lower lumbar spine. No pars de fect evident. HARDWARE: None in the spine. CORD AND CONUS: Normal in size and signal intensity. Conus at the appropriate level. SOFT TISSUES: No aortic aneurysm seen. No bulky retroperitoneal adenopathy or mass. No paraspinal mas s or fluid. L1-L2: No significant spinal stenosis or exit foraminal stenosis. L2-L3: No significant spinal stenosis or exit foraminal stenosis. L3-L4: No significant spinal stenosis or exit foraminal stenosis. L4-L5: No significant spinal stenosis or exit foraminal stenosis. L5-S1: No significant spinal stenosis or exit foraminal stenosis. LOWER THORACIC: Incompletely imaged. No stenosis seen. SACRUM: Visualized upper sacrum intact. OTHER: No other significant findings. IMPRESSION: MILD FACET ARTHROPATHY. NO DISC DISEASE. NO STENOSIS OR IMPINGEMENT. TECHNICAL DOCUMENTATION: JOB ID: [id number] 2010 [employer]- All Rights Reserved Reading location - IP/workstation name: [email or web address]
== END ==
LOC: RAD 07:59
PROVIDERS: ATTEND Physician Assistant
DX: M47.816 Spondylosis without myelopathy or radiculopathy, lumbar region (principal); M54.5 Low back pain
CPT/HCPCS: 72148